=== PATIENT | male | born 1935 | race Caucasian/White ===

== ENCOUNTER 2020-03-01 12:18 | Observation (INO) ==
[2020-03-01] MEDS ORDERED: levoFLOXacin 500 MG/100 ML 500 MG/100 ML BAG IVPB ONE (12:34)
[2020-03-01] MEDS ORDERED: Ringers Solution, Lactated 1,000 ML IVC SCH (12:45)
[2020-03-01] MEDS ORDERED: Dexamethasone 4 MG/ML VIAL ONE (13:25)
[2020-03-01] MEDS ORDERED: *HR* Propofol 200 MG/20 ML VIAL IVP ONE (13:25)
[2020-03-01] MEDS ORDERED: Lidocaine -MPF 2% 2 ML VIAL ONE (13:25)
[2020-03-01] MEDS ORDERED: *HR* FentaNYL (PF) 100 MCG/2 ML VIAL ONE (13:25)
[2020-03-01] MEDS ORDERED: Ondansetron 4 MG/2 ML VIAL ONE (13:25)
[2020-03-01] MEDS ORDERED: Ondansetron 4 MG/2 ML VIAL IVP PRN (15:45)
[2020-03-01] MEDS ORDERED: Naloxone 0.4 MG/ML INJ IVP PRN (15:45)
[2020-03-01] MEDS ORDERED: Perflutren Lipid Microsphere 1.3 ML in 0.9 % Sodium Chloride 8.7 ML IVP PRN (15:53)
[2020-03-01] MEDS: cloNIDine HCL 0.1 MG TABLET PO SCH ×2 (16:11→20:26)
[2020-03-01 16:17] LABS: Basophils # 0.1 K/mcL (0.0-0.2); Basophils % 1.8 %; Eosinophils # 0.2 K/mcL (0.0-0.6); Eosinophils % 3.5 %; Hematocrit 25.1 % (37.5-50.1); Hemoglobin 8.6 g/dL (12.9-16.9); Immature Granulocytes % 0.2 % (0-4); Lymphocytes # 1.5 K/mcL (0.6-4.6); Lymphocytes % 24.7 %; Mean Corpuscular HGB Conc 34.3 g/dL (31.6-35.5); Mean Corpuscular Hemoglobin 32.2 pg (28.0-33.3); Mean Platelet Volume 9.9 fL (9.4-12.4); Monocytes # 0.4 K/mcL (0.0-1.3); Monocytes % 6.4 %; Neutrophils # 3.9 K/mcL (1.6-8.9); Platelet Count 298 K/mcL (140-400); Red Blood Count 2.67 M/mcL (4.19-5.50); Red Cell Distribution Width 13.8 % (11.5-14.5); Segmented Neutrophils % 63.4 %; White Blood Count 6.1 K/mcL (4.3-11.1)
[2020-03-01 16:26] LABS: Alanine Aminotransferase 8 Units/L (7-52); Albumin 3.5 g/dL (3.5-5.7); Albumin/Globulin Ratio 1.3 (1.1-2.2); Alkaline Phosphatase 70 Units/L (34-104); Aspartate Amino Transferase 14 Units/L (13-39); BUN/Creatinine Ratio 18 (6-26); Bilirubin,Total 0.6 mg/dL (0.3-1.0); Blood Urea Nitrogen 23 mg/dL (8-23); Carbon Dioxide 23 mEq/L (23-29); Chloride 103 mEq/L (98-107); Globulin 2.6 g/dL (2.4-3.5); Glucose 108 mg/dL (70-105); Magnesium 1.8 mg/dL (1.6-2.6); Osmolality,Calculated 278 (280-300); Phosphorous 2.9 mg/dL (2.7-4.5); Potassium 4.1 mEq/L (3.5-5.1); Sodium 132 mEq/L (136-145); Total Protein 6.1 g/dL (6.4-8.9); Troponin I < 0.03 ng/mL (< 0.04); eGFR For African Americans > 60 (> 60); eGFR For Non-African Americans 52 (> 60)
[2020-03-01] MEDS ORDERED: Furosemide 20 MG/2 ML VIAL IVP SCH (16:30)
[2020-03-01] MEDS ORDERED: NON-FORMULARY MEDICATION 1 EACH EACH (Carvedilol [Carvedilol] 12.5 MG) PO SCH (17:00)
[2020-03-01] MEDS: carvediloL 6.25 MG TABLET PO SCH (20:28)
[2020-03-01] MEDS ORDERED: lisinopriL 20 MG TABLET PO SCH (21:00)
[2020-03-01] MEDS ORDERED: Lisinopril-HCTZ 20-12.5mg TABLET PO SCH (21:00)
[2020-03-02 02:40] LABS: Basophils # 0.1 K/mcL (0.0-0.2); Basophils % 1.7 %; Eosinophils # 0.4 K/mcL (0.0-0.6); Hematocrit 21.6 % (37.5-50.1); Hemoglobin 7.3 g/dL (12.9-16.9); Immature Granulocytes % 0.2 % (0-4); Lymphocytes # 1.4 K/mcL (0.6-4.6); Lymphocytes % 26.1 %; Mean Corpuscular HGB Conc 33.8 g/dL (31.6-35.5); Mean Corpuscular Hemoglobin 32.3 pg (28.0-33.3); Mean Corpuscular Volume 95.6 fL (83.0-100.0); Mean Platelet Volume 9.8 fL (9.4-12.4); Monocytes # 0.5 K/mcL (0.0-1.3); Monocytes % 9.7 %; Neutrophils # 2.9 K/mcL (1.6-8.9); Platelet Count 251 K/mcL (140-400); Red Blood Count 2.26 M/mcL (4.19-5.50); Red Cell Distribution Width 13.6 % (11.5-14.5); Segmented Neutrophils % 55.3 %; White Blood Count 5.3 K/mcL (4.3-11.1)
[2020-03-02 02:59] LABS: BUN/Creatinine Ratio 21 (6-26); Blood Urea Nitrogen 26 mg/dL (8-23); Calcium 8.3 mg/dL (8.6-10.3); Carbon Dioxide 22 mEq/L (23-29); Chloride 104 mEq/L (98-107); Glucose 101 mg/dL (70-105); Osmolality,Calculated 279 (280-300); Potassium 3.9 mEq/L (3.5-5.1); Sodium 132 mEq/L (136-145); eGFR For African Americans > 60 (> 60); eGFR For Non-African Americans 56 (> 60)
[2020-03-02] MEDS: carvediloL 6.25 MG TABLET PO SCH (08:12)
[2020-03-02] MEDS: cloNIDine HCL 0.1 MG TABLET PO SCH (08:22)
[2020-03-02 08:31] LABS: Hematocrit 23.4 % (37.5-50.1); Hemoglobin 8.1 g/dL (12.9-16.9)
[2020-03-02] MEDS ORDERED: Furosemide 20 MG TABLET PO SCH (09:00)
[2020-03-02] MEDS ORDERED: Cyanocobalamin (B-12) 1,000 MCG TABLET PO SCH (09:00)
[2020-03-02] MEDS ORDERED: Iron Polysaccharide Complex 150 MG CAPSULE PO SCH (09:00)
[2020-03-02] MEDS ORDERED: allopurinoL 100 MG TABLET PO SCH (09:00)
[2020-03-02 12:14] VITALS: BP 147/49
[2020-03-04] MEDS ORDERED: Ergocalciferol (VIT D2) 50,000 UNIT (1.25MG) CAP PO SCH (12:00)
== END 2020-03-02 13:31 | disposition home or self-care (01) ==
LOC: 2NNU 12:18 → SAMDAY 12:18 → SUATTDRO 15:41
PROVIDERS: ADMIT Student in an Organized Health Care Education/Training Program; ATTEND Family Medicine

== ENCOUNTER 2022-03-04 08:09 | Observation (INO) ==
[2022-03-04] MEDS ORDERED: levoFLOXacin 500 MG/100 ML 500 MG/100 ML BAG IVPB ONE (08:31)
[2022-03-04] MEDS ORDERED: Ringers Solution, Lactated 1,000 ML IVC SCH ×2 (08:45→19:26)
[2022-03-04] MEDS ORDERED: *HR* OxyCODONE Immed Rel 5 MG TABLET PO PRN (09:00)
[2022-03-04] MEDS ORDERED: Ondansetron 4 MG/2 ML VIAL IVP PRN (09:00)
[2022-03-04] MEDS ORDERED: *HR* FentaNYL (PF) 100 MCG/2 ML VIAL ONE (09:47)
[2022-03-04] MEDS ORDERED: Ondansetron 4 MG/2 ML VIAL ONE (09:47)
[2022-03-04] MEDS ORDERED: Lidocaine -MPF 2% 5 ML VIAL ONE (09:47)
[2022-03-04] MEDS ORDERED: *HR* Propofol 200 MG/20 ML VIAL IVP ONE (09:48)
[2022-03-04] MEDS ORDERED: Sugammadex Sodium 200 MG/2 ML VIAL IV ONE (09:56)
[2022-03-04] MEDS ORDERED: *HR* HYDROcodone/Acet 5/325 mg TABLET PO PRN ×2 (11:13→19:26)
[2022-03-04] MEDS: *HR* HYDROmorphone PF 0.5 MG/0.5 ML SYRINGE IVP PRN ×4 (11:31→11:58)
[2022-03-04] MEDS ORDERED: Ondansetron ODT 4 MG TAB.RAPDIS SL PRN ×2 (15:38→19:26)
[2022-03-04] MEDS ORDERED: Naloxone 0.4 MG/ML INJ IVP PRN ×2 (15:38→19:26)
[2022-03-04] MEDS ORDERED: Melatonin 3 MG TABLET PO PRN ×2 (15:38→19:26)
[2022-03-04] MEDS ORDERED: Acetaminophen 325 MG TABLET PO PRN ×2 (15:38→19:26)
[2022-03-04] MEDS ORDERED: predniSONE 20 MG TABLET PO ONE ×2 (15:47→16:15)
[2022-03-04] MEDS ORDERED: MethylPREDNISolone 40 MG/ML VIAL IVP ONE ×2 (15:53→16:15)
[2022-03-04] MEDS ORDERED: MethylPREDNISolone 40 MG/ML VIAL ONE (16:12)
[2022-03-04 19:09] LABS: Basophils % 0.2 %; Hematocrit 24.1 % (37.5-50.1); Hemoglobin 8.5 g/dL (12.9-16.9); Immature Granulocytes % 0.3 % (0-4); Lymphocytes % 2.4 %; Mean Corpuscular HGB Conc 35.3 g/dL (31.6-35.5); Mean Corpuscular Hemoglobin 33.5 pg (28.0-33.3); Mean Corpuscular Volume 94.9 fL (83.0-100.0); Mean Platelet Volume 10.8 fL (9.4-12.4); Monocytes # 0.2 K/mcL (0.0-1.3); Monocytes % 1.7 %; Platelet Count 281 K/mcL (140-400); Red Blood Count 2.54 M/mcL (4.19-5.50); Red Cell Distribution Width 14.4 % (11.5-14.5); Segmented Neutrophils % 95.4 %
[2022-03-04 19:11] LABS: Lymphocytes # 0.2 K/mcL (0.6-4.6); Neutrophils # 9.7 K/mcL (1.6-8.9); White Blood Count 10.2 K/mcL (4.3-11.1)
[2022-03-04] MEDS ORDERED: cloNIDine HCL 0.1 MG TABLET PO SCH ×2 (21:00)
[2022-03-05] MEDS: *HR* Labetalol 20 MG/4 ML SYRINGE IVP ONE ×2 (01:37→01:39)
[2022-03-05 04:03] VITALS: TEMP 97.3
[2022-03-05] MEDS ORDERED: Cyanocobalamin (B-12) 1,000 MCG TABLET PO SCH ×2 (09:00)
[2022-03-05] MEDS ORDERED: Iron Polysaccharide Complex 150 MG CAPSULE PO SCH (09:00)
[2022-03-05] MEDS ORDERED: cloNIDine HCL 0.1 MG TABLET PO SCH (09:00)
[2022-03-05] MEDS ORDERED: allopurinoL 100 MG TABLET PO SCH ×2 (09:00)
[2022-03-05] MEDS ORDERED: Lisinopril-HCTZ 20-12.5mg TABLET PO SCH ×2 (09:00→11:30)
[2022-03-05 09:15] LABS: Basophils % 0.1 %; Hematocrit 23.4 % (37.5-50.1); Immature Granulocytes % 0.4 % (0-4); Lymphocytes # 0.5 K/mcL (0.6-4.6); Lymphocytes % 4.7 %; Mean Corpuscular HGB Conc 34.2 g/dL (31.6-35.5); Mean Corpuscular Hemoglobin 32.3 pg (28.0-33.3); Mean Corpuscular Volume 94.4 fL (83.0-100.0); Monocytes # 0.1 K/mcL (0.0-1.3); Monocytes % 1.1 %; Neutrophils # 9.9 K/mcL (1.6-8.9); Platelet Count 271 K/mcL (140-400); Red Blood Count 2.48 M/mcL (4.19-5.50); Red Cell Distribution Width 14.6 % (11.5-14.5); Segmented Neutrophils % 93.7 %; White Blood Count 10.5 K/mcL (4.3-11.1)
[2022-03-05 09:27] LABS: Calcium 9.1 mg/dL (8.6-10.3); Potassium 4.4 mEq/L (3.5-5.1)
[2022-03-05 14:08] VITALS: BP 144/60; PULSE 50; O2SAT 99
== END 2022-03-05 16:40 | disposition home or self-care (01) ==
LOC: 3NENU 08:09 → SAMDAY 08:09
PROVIDERS: ADMIT Internal Medicine; ATTEND Internal Medicine

== ENCOUNTER 2022-04-02 20:29 | Observation (INO) ==
[2022-04-03] MEDS ORDERED: Ondansetron 4 MG/2 ML VIAL IVP PRN (00:10)
[2022-04-03] MEDS ORDERED: Melatonin 3 MG TABLET PO PRN (00:10)
[2022-04-03] MEDS ORDERED: *HR* HYDROcodone/Acet 5/325 mg TABLET PO PRN (00:10)
[2022-04-03] MEDS ORDERED: Naloxone 0.4 MG/ML INJ IVP PRN (00:10)
[2022-04-03] MEDS ORDERED: *HR* OxyCODONE Immed Rel 5 MG TABLET PO PRN (00:10)
[2022-04-03] MEDS ORDERED: Acetaminophen 325 MG TABLET PO PRN (00:10)
[2022-04-03] MEDS ORDERED: *HR* Labetalol 20 MG/4 ML SYRINGE IVP PRN (01:37)
[2022-04-03] MEDS: cloNIDine HCL 0.1 MG TABLET PO SCH ×2 (01:51→09:15)
[2022-04-03 01:55] LABS: Basophils % 0.2 %; Hematocrit 21.5 % (37.5-50.1); Hemoglobin 7.3 g/dL (12.9-16.9); Immature Granulocytes % 0.2 % (0-4); Lymphocytes # 0.4 K/mcL (0.6-4.6); Lymphocytes % 3.4 %; Mean Corpuscular Hemoglobin 32.9 pg (28.0-33.3); Mean Corpuscular Volume 96.8 fL (83.0-100.0); Mean Platelet Volume 12.1 fL (9.4-12.4); Monocytes # 0.5 K/mcL (0.0-1.3); Monocytes % 3.8 %; Neutrophils # 11.5 K/mcL (1.6-8.9); Platelet Count 223 K/mcL (140-400); Red Blood Count 2.22 M/mcL (4.19-5.50); Segmented Neutrophils % 92.4 %; White Blood Count 12.5 K/mcL (4.3-11.1)
[2022-04-03 02:09] LABS: INR 1.1; Prothrombin Time 12.3 Seconds (9.4-12.1)
[2022-04-03 02:16] LABS: Calcium 8.8 mg/dL (8.6-10.3); Chol/HDL Ratio 2.1 (0-4.9); Magnesium 1.6 mg/dL (1.6-2.6); Potassium 4.2 mEq/L (3.5-5.1)
[2022-04-03] MEDS ORDERED: cefTRIAXone 1,000 MG in Water for inj. (sterile) 10 ML IVP SCH (09:00)
[2022-04-03] MEDS ORDERED: Sennosides/Docusate Sodium TABLET PO SCH (09:00)
[2022-04-03 11:28] VITALS: O2SAT 98
[2022-04-03 14:50] VITALS: BP 169/68; PULSE 54; TEMP 97.6
== END 2022-04-03 15:12 | disposition home or self-care (01) ==
LOC: 3ANU → SUATTDRO 22:51
PROVIDERS: ADMIT Internal Medicine; ATTEND Internal Medicine